=== PATIENT | female | born 2000 | race Hispanic/Latino ===

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

== ENCOUNTER 2020-11-06 21:18 | Emergency (ER) | payer MEDICAID, OTHER ==
[~2020-11-06] VITALS: Ht 167.6 cm; Wt 68.0 kg
[2020-11-06 21:29] VITALS: BP 120/80
[2020-11-06] MEDS ORDERED: ACETAMINOPHEN 325 MG TAB PO SCH (22:00)
[2020-11-06] MEDS ORDERED: NAPR-1180 PO (22:38)
[2020-11-06 23:03] VITALS: BP 115/76
== END 2020-11-06 23:38 | disposition home or self-care (01) ==
LOC: EDH 22:56
DX: M54.10 Radiculopathy, site unspecified (principal); M79.602 Pain in left arm; Z86.718 Personal history of other venous thrombosis and embolism; Z79.1 Long term (current) use of non-steroidal anti-inflammatories (NSAID)
CPT/HCPCS: 93971

== ENCOUNTER 2022-04-30 15:22 | Emergency (ER) | payer OTHER ==
[~2022-04-30] VITALS: Ht 167.6 cm; Wt 63.5 kg
[~2022-04-30 15:22] MED LIST: NAPR-1180 PO
[2022-04-30 15:23] VITALS: BP 134/69
[2022-04-30 16:26] LABS: APPEARANCE,URINE CLEAR (CLEAR); BILIRUBIN,URINE NEGATIVE (NEGATIVE); COLOR,URINE YELLOW (YELLOW); GLUCOSE, URINE (UA) NEGATIVE (NEGATIVE); KETONES,URINE 10 mg/dL (NEGATIVE); LEUKOCYTE ESTERASE ,URINE NEGATIVE Leu/uL (NEGATIVE); NITRATE,URINE NEGATIVE (NEGATIVE); OCCULT BLOOD,URINE NEGATIVE (NEGATIVE); PH,URINE 6.5 (5.0-8.0); PROTEIN,URINE 30 mg/dL (NEGATIVE); UROBILINOGEN,URINE 0.2 mg/dL (0.2-1.0)
[2022-04-30 16:35] LABS: HCG,QUALITATIVE URINE NEGATIVE (NEGATIVE)
[2022-04-30 16:41] LABS: BACTERIA,URINE RARE /HPF (None Seen); MUCUS,URINE FEW LPF (None Seen); SQUAMOUS EPITHELIAL CELL,UR RARE /HPF (0-2)
[2022-04-30 17:12] LABS: BASOPHILS % (AUTO) 0.4 % (0.0-5.0); EOSINOPHILS % (AUTO) 0.1 % (0.0-8.0); HEMATOCRIT 37.6 % (36-48); LYMPHOCYTES % (AUTO) 19.1 % (21.0-51.0); MEAN CORPUSCULAR HEMOGLOBIN 29.4 pg (27.0-33.0); MEAN CORPUSCULAR HGB CONC 33.2 g/dL (32.0-36.0); MEAN CORPUSCULAR VOLUME 88.5 fL (79-99); MONOCYTES % (AUTO) 5.3 % (3.0-13.0); NEUTROPHILS % (AUTO) 74.9 % (40.0-77.0); PLATELET COUNT (AUTO) 295 K/uL (130-400); RED BLOOD CELL COUNT(AUTO) 4.25 MIL/uL (4.00-5.50); RED CELL DISTRIBUTION WIDTH 12.9 % (11.0-15.5); WHITE BLOOD COUNT (AUTO) 9.3 K/uL (4.8-10.8)
[2022-04-30 17:21] LABS: CREATININE 0.7 mg/dL (0.5-1.5)
[2022-04-30 17:26] LABS: ALBUMIN 4.6 g/dL (3.5-5.0); TOTAL PROTEIN, SERUM 8.2 g/dL (6.0-8.3)
[2022-04-30] MEDS ORDERED: IBUP-2070 PO (19:59)
== END 2022-04-30 20:04 | disposition home or self-care (01) ==
LOC: EDH 15:22
DX: N64.4 Mastodynia (principal); D64.9 Anemia, unspecified; Z90.89 Acquired absence of other organs; Z98.890 Other specified postprocedural states
CPT/HCPCS: 36415; 76642; 80053; 81001; 81025; 85025; 93971

== ENCOUNTER 2025-05-20 07:16 | Emergency (ER) | payer SELFPAY ==
[~2025-05-20] VITALS: Ht 167.6 cm; Wt 69.9 kg
[~2025-05-20 07:16] MED LIST changes: +IBUP-1492 PO
[2025-05-20 07:17] VITALS: TEMP 98.6
--- NOTE | 2025-05-20 07:35 | ERN ---
ED Note History of Present Illness Stated Complaint: LEFT FOOT INJURY Chief Complaint: FOOT INJURY/PAIN Time Seen by MD: 07:21 Dictation: 24-year-old female who is a a injury to the left foot 5 days ago. Patient states that she was open a fence door, a 4 x 4 piece of wood fell on her left foot. Patient has anterior ankle abrasion, pain to the ankle/dorsal foot. Patient has been walking, but stated that is painful. She wants to make sure there is no fracture to the affected foot. Allergies: Coded Allergies: No Known Allergies (Unverified Allergy, Unknown, 11/06/20) Home Meds Active Scripts Mupirocin (Mupirocin Ointment) 2 % Oint, 1 APPL TP TID for 5 Days, #15 GM 0 Refills apply to affected area(s) Prov:GERSON ROBLEDO MD 05/20/25 Ibuprofen (Ibuprofen 800 mg Tab) 800 Mg Tab, 1 TAB PO TID for pain for 10 Days, #30 TAB 0 Refills Prov:GERSON ROBLEDO MD 05/20/25 Ibuprofen (Ibuprofen) 600 Mg Tablet, 600 MG PO TID PRN for PAIN, #45 TAB Prov:MCKINLEY MOISE 04/30/22 Naproxen (Naprosyn) 500 Mg Tablet, 500 MG PO BID, #60 TAB Prov:MCKINLEY MOISE 11/06/20 Past Medical History Past Medical History: Anemia, Other Additional Past Medical Hx: HX OF BLOOD CLOT TO LEFT ARM, SICKLE CELL ANEMIA Surgical History: Tonsillectomy Surgical History Other: EGD Family History: Negative Social History: Negative History: Not Applicable Review of System Dictation NEGATIVE EXCEPT PER HPI Constitutional: Negative for fever,chills, and weight loss Eyes: Negative for injury, pain,redness, and discharge ENT: Negative for injury,pain or swelling Cardiovascular: denies chest pain, palpitations, and edema Respiratory: Negative for shortness of breath, cough, and wheezing, Abdomen/GI: Negative for abdominal pain, nausea, vomiting, diarrhea, and constipation Back: Negative for injury and pain : Negative for injury, bleeding and discharge MS/Extremity: Pain to left foot Skin: Left foot abrasion Neuro: Negative for headache, weakness, numbness, tingling, and seizure Psych: Negative for suicide ideation, homicidal ideation, and hallucinations Initial Vital Sign VS Vital Signs Date Time Temp Pulse Resp B/P (MAP) Pulse Ox O2 Delivery O2 Flow Rate FiO2 05/20/25 07:17 98.6 81 16 147/90 99 Room Air 05/20/25 09:24 0 21 Physical Exam Dictation General: awake, alert, NAD Head/Face: Normocephalic, atraumatic Eyes: PERRL, EOMI, vision at baseline ENT: oral cavity clear, TMs clear, no signs of infection Neck: Trachea midline, supple, no nuchal rigidity Cardiovascular: RRR, normal S1/S2, No MRGs, no JVD Respiratory: CTAB, no respiratory distress, No rales or wheezes Abdomen: Soft , no tender Skin: Warm, dry, normal turgor, no rash MS/Extremity: Pulses equal, no cyanosis, neurovascular intact, limited range of motion of left due to pain. Tender to the left foot Neuro: COAx4, GCS 15, strength 5/5, CN 2-12 intact, normal cerebellar exam, normal gait, Psych: Normal behavior, mood, and affect normal ED Course ED Course Orders Procedure Category Date Status Time Foot Comp 3+Vws Lt RAD 05/20/25 Resulted 07:26 Ankle Comp 3vws Lt RAD 05/20/25 Resulted 07:26 Bacitracin PHA 05/20/25 Complete (Bacitracin) 08:30 Current Medications Medications (Trade) Dose Ordered Sig/Socrates Route PRN Reason Start Time Stop Time Status Last Admin Dose Admin Bacitracin (Bacitracin) 1 each ONCE ONCE TP 05/20/25 08:30 05/20/25 08:31 DC 05/20/25 08:42 Vital Signs Date Time Temp Pulse Resp B/P (MAP) Pulse Ox O2 Delivery O2 Flow Rate FiO2 05/20/25 09:24 78 20 132/80 98 Room Air* 0 21 05/20/25 07:17 98.6 81 16 147/90 99 Room Air Medical Decision Making MDM Left Foot injury Possible left ankle fracture Possible left foot fracture Ordered x-rays of ankle and foot left side. DX & DISP Disposition: Discharge Departure Impression: Primary Impression: Foot and ankle pain Additional Impression: Ankle abrasion Condition: Stable Scripts Mupirocin (Mupirocin Ointment) 2 % Oint 1 APPL TP TID for 5 Days, #15 GM 0 Refills apply to affected area(s) Prov: GERSON ROBLEDO MD 05/20/25 Ibuprofen (Ibuprofen 800 mg Tab) 800 Mg Tab 1 TAB PO TID for pain for 10 Days, #30 TAB 0 Refills Prov: GERSON ROBLEDO MD 05/20/25 Additional Instructions: Must follow up with the PCP in next 24 hours Referrals: MINA WILLOUGHBY (PCP) Time of Disposition: 09:14 GERSON ROBLEDO MD May 20, 2025 07:35
[2025-05-20] MEDS: BACITRACIN 1 EACH PACKET TP ONE (08:42)
--- NOTE | 2025-05-20 08:50 | HMCIMG ---
EXAM: CR Left Foot, 3 views. CLINICAL HISTORY: Foot injury COMPARISON: None provided. FINDINGS: No acute fracture or aggressive appearing osseous lesion. Joint spaces are within normal limits. The soft tissues are unremarkable. IMPRESSION: No acute osseous abnormality. /[place]
--- NOTE | 2025-05-20 09:04 | HMCIMG ---
EXAM: CR right ankle, 3 View. CLINICAL HISTORY: injury to foot COMPARISON: None. FINDINGS: There is no evidence of acute fracture, dislocation, or osseous destructive lesion. The joint spaces are normal. The soft tissues appear unremarkable. IMPRESSION: No acute fracture or dislocation. /[place]
[2025-05-20] MEDS ORDERED: MUPI22OI2 TP (09:16)
[2025-05-20] MEDS ORDERED: IBUP-2077 PO (09:16)
[2025-05-20 09:24] VITALS: BP 132/80; PULSE 78; RESP 20; O2SAT 98
== END 2025-05-20 09:26 | disposition home or self-care (01) ==
LOC: EDH 07:16
DX: S90.512A Abrasion, left ankle, initial encounter (principal); M79.672 Pain in left foot; D57.1 Sickle-cell disease without crisis; Z79.1 Long term (current) use of non-steroidal anti-inflammatories (NSAID); Z90.89 Acquired absence of other organs; W20.8XXA Other cause of strike by thrown, projected or falling object, initial encounter; Y93.89 Activity, other specified; Y92.89 Other specified places as the place of occurrence of the external cause; Y99.8 Other external cause status
CPT/HCPCS: 73610; 73630; 99284